=== PATIENT | male | born 1995 | race Caucasian/White ===

== ENCOUNTER 2016-06-11 02:23 | Emergency (ER) | payer OTHER | END 2016-06-11 04:40 | disposition home or self-care (01) | LOC: ER1 02:23 | DX: S61.214A Laceration without foreign body of right ring finger without damage to nail, initial encounter (principal); Z23 Encounter for immunization; W26.8XXA Contact with other sharp object(s), not elsewhere classified, initial encounter | CPT/HCPCS: 12001; 90471; 90715; 99283 ==

== ENCOUNTER → 2020-11-18 | Outpatient (CLI) | payer OTHER ==
[~2020-11-18] MED LIST: ELIMITE 5% CREA60 GM TOP; ELIMITE60 GM TP; IBUPROFEN800 MG PO; LEVOFLOXACIN500 MG PO; MEDROL4 MG PO; PROTONIX40 M1 PO
[2020-11-18 09:29] LABS: RED BLOOD COUNT 5.4 M/UL (4.20-5.50)
[2020-11-18 09:48] LABS: BUN/CREATININE RATIO 8 (0-10)
== END ==
LOC: LAB 08:23
PROVIDERS: Nurse Practitioner Family
DX: I10 Essential (primary) hypertension (principal)
CPT/HCPCS: 36415; 71046; 80053; 80061; 84443; 85025; 93005

== ENCOUNTER 2021-04-17 08:26 | Emergency (ER) | payer OTHER ==
[2021-04-17] MEDS ORDERED: PREDNISONE50 MG PO (09:36)
[2021-04-17] MEDS ORDERED: BENADRYL 25MG C25 MG PO (09:36)
== END 2021-04-17 10:02 | disposition home or self-care (01) ==
LOC: ER1 08:26
DX: T78.40XA Allergy, unspecified, initial encounter (principal); I10 Essential (primary) hypertension; X58.XXXA Exposure to other specified factors, initial encounter
CPT/HCPCS: 96374; 96375; 99284; J2930